=== PATIENT | male | born 1985 | race Caucasian/White ===

== ENCOUNTER 2018-05-15 15:42 | Emergency (ER) | payer OTHER, BC ==
[~2018-05-15] VITALS: Ht 160 cm; Wt 87.3 kg
[~2018-05-15 15:42] MED LIST: LITHIUM CARBON300 MG; METHYLPHENIDATE54 MG; PAROXETINE HCL10 MG; SEROQUEL200 MG
[2018-05-15] MEDS ORDERED: KEFLEX500 MG PO (18:49)
[2018-05-15 19:31] VITALS: BP 113/77
== END 2018-05-15 19:32 | disposition home or self-care (01) ==
LOC: EME 15:42
PROC: 3E0234Z Introduction of Serum, Toxoid and Vaccine into Muscle, Percutaneous Approach (ICD-10-PCS; principal; 2018-05-15)
PROC: 0HQEXZZ Repair Left Lower Arm Skin, External Approach (ICD-10-PCS; principal; 2018-05-15)
DX: S51.812A Laceration without foreign body of left forearm, initial encounter (principal); W27.8XXA Contact with other nonpowered hand tool, initial encounter; Y99.0 Civilian activity done for income or pay; Z23 Encounter for immunization; F17.200 Nicotine dependence, unspecified, uncomplicated
CPT/HCPCS: 99281; 99283